=== PATIENT | female | born 1985 | race Caucasian/White ===

== ENCOUNTER 2020-11-01 05:45 | Inpatient (IN) | payer OTHER ==
[~2020-11-01] VITALS: Ht 167.6 cm; Wt 87.0 kg
[~2020-11-01 05:45] MED LIST: IBUP-1222 PO
[2020-11-01] MEDS ORDERED: SODIUM CITRATE/CITRIC ACID 30 ML UDC PO PRN (06:00)
[2020-11-01] MEDS ORDERED: ALUMINUM/MAG/SIMETHICONE 30 ML UDC PO PRN (06:00)
[2020-11-01] MEDS ORDERED: CALCIUM CARBONATE 500 MG TAB.CHEW PO PRN ×2 (06:00→16:30)
[2020-11-01] MEDS ORDERED: METOCLOPRAMIDE 5 MG/ML, 2ML IVPush PRN (06:00)
[2020-11-01] MEDS ORDERED: FENTANYL PF 100 MCG/2ML IV PRN (06:00)
[2020-11-01] MEDS ORDERED: SODIUM CHLORIDE FLUSH 10ML SYR IVF PRN (06:00)
[2020-11-01] MEDS ORDERED: ONDANSETRON 2MG/ML, 2ML IVPush PRN ×2 (06:00→18:00)
[2020-11-01] MEDS: D5%-LACTATED RINGERS 1,000 ML IV SCH ×3 (06:00→22:00)
[2020-11-01] MEDS ORDERED: TERBUTALINE 1 MG/ML, 1ML IVPush PRN (06:00)
[2020-11-01] MEDS ORDERED: OXYTOCIN 30U/ 0.9% NaCL 500ML 500 ML IV ONE (06:00)
[2020-11-01] MEDS ORDERED: TERBUTALINE 1 MG/ML, 1ML SQ PRN (06:00)
[2020-11-01] MEDS ORDERED: FENTANYL PF 100 MCG/2ML ONE ×3 (06:07→15:27)
[2020-11-01] MEDS: LACTATED RINGERS 1,000 ML IV SCH ×9 (06:10→22:00)
[2020-11-01] MEDS: FENTANYL PF 100 MCG/2ML IVPush PRN ×2 (06:11→08:54)
[2020-11-01 06:21] VITALS: BP 100/55
[2020-11-01] MEDS ORDERED: LIDOCAINE 1%, 20ML ONE (06:25)
[2020-11-01] MEDS ORDERED: MISOPROSTOL 200 MCG TABLET ONE (06:25)
[2020-11-01 06:59] LABS: BASOPHILS % (AUTO) 1 % (0-1); EOSINOPHILS % (AUTO) 3 % (1-7); LYMPHOCYTES % (AUTO) 13 % (22-44); MEAN CORPUSCULAR HEMOGLOBIN 28.5 pg (27.0-34.8); MEAN CORPUSCULAR HGB CONC 32.9 g/dL (32.4-35.8); MEAN PLATELET VOLUME 9.4 fL (7.4-10.4); MONOCYTES % (AUTO) 9 % (2-9); NEUTROPHILS % (AUTO) 75 % (42-75); PLATELET COUNT 210 x10^3/uL (130-400); RED BLOOD COUNT 3.87 x10^6/uL (3.82-5.3); RED CELL DISTRIBUTION WIDTH 14.1 % (9.6-15.2)
[2020-11-01] MEDS ORDERED: FENTANYL/BUPIV./NS/PF 250 ML EPIDCONT ONE (07:11)
[2020-11-01] MEDS ORDERED: EPHEDRINE 50 MG/ML, 1ML IVPush PRN ×3 (07:30→18:00)
[2020-11-01] MEDS ORDERED: LACTATED RINGERS 1,000 ML IVBOLUS PRN ×2 (07:30→10:00)
[2020-11-01] MEDS ORDERED: NALOXONE 0.4 MG/ML, 1ML IVPush PRN ×2 (07:30→10:00)
[2020-11-01] MEDS ORDERED: FENTANYL/BUPIV./NS/PF 250 ML EPIDCONT SCH ×2 (07:30→10:00)
[2020-11-01] MEDS ORDERED: BUPIVACAINE 0.25% ONE (08:48)
[2020-11-01] MEDS ORDERED: DIPHENHYDRAMINE 25 MG CAPSULE ONE (13:49)
[2020-11-01] MEDS ORDERED: DIPHENHYDRAMINE 25 MG CAPSULE PO ONE ×2 (14:00→22:30)
[2020-11-01] MEDS ORDERED: SODIUM CITRATE/CITRIC ACID 15 ML UDC ONE (15:24)
[2020-11-01] MEDS ORDERED: PROPOFOL 10 MG/ML, 20ML ONE (15:27)
[2020-11-01] MEDS ORDERED: OXYTOCIN 10 UNITS/ML, 1ML ONE (15:27)
[2020-11-01] MEDS ORDERED: EPHEDRINE 50 MG/ML, 1ML ONE (15:27)
[2020-11-01] MEDS ORDERED: CEFAZOLIN 1,000 MG ONE (15:27)
[2020-11-01] MEDS ORDERED: DEXAMETHASONE 4 MG/ML, 1ML ONE (15:27)
[2020-11-01] MEDS ORDERED: PHENYLEPHRINE 10 MG/ML ONE (15:27)
[2020-11-01] MEDS ORDERED: KETOROLAC 30 MG/1 ML ONE (15:27)
[2020-11-01] MEDS ORDERED: SUCCINYLCHOLINE 20 MG/ML, 10ML ONE (15:27)
[2020-11-01] MEDS ORDERED: ONDANSETRON 2MG/ML, 2ML ONE (15:27)
[2020-11-01] MEDS ORDERED: morphine SULFATE/PF 0.5 MG/ML, 10ML ONE (16:09)
[2020-11-01] MEDS: KETOROLAC 30 MG/1 ML IV SCH ×2 (16:30→23:39)
[2020-11-01] MEDS ORDERED: METOCLOPRAMIDE 5 MG/ML, 2ML IV PRN (16:30)
[2020-11-01] MEDS ORDERED: MISOPROSTOL 200 MCG TABLET SL PRN (16:30)
[2020-11-01] MEDS ORDERED: ONDANSETRON 2MG/ML, 2ML IV PRN (16:30)
[2020-11-01] MEDS ORDERED: DIPH,PERTUSS(ACELL),TET VAC/PF NC IM-VACC PRN (16:30)
[2020-11-01] MEDS: OXYTOCIN 30U/ 0.9% NaCL 500ML 500 ML IV SCH (16:30)
[2020-11-01] MEDS ORDERED: MORPHINE SULFATE 4 MG/ML, 1ML IVPush PRN (16:30)
[2020-11-01] MEDS ORDERED: METHYLERGONOVINE 0.2 MG/ML IM PRN (16:30)
[2020-11-01] MEDS ORDERED: HYDROmorphone 1 MG/ML, 1ML INJ IVPush PRN (18:00)
[2020-11-01] MEDS ORDERED: FENTANYL PF 100 MCG/2ML IVPush PRN (18:00)
[2020-11-01] MEDS ORDERED: NALOXONE 0.4 MG/ML, 1ML IV PRN ×3 (18:00)
[2020-11-01] MEDS ORDERED: OXYcodone/APAP 5/325MG TABLET PO PRN (18:00)
[2020-11-01] MEDS ORDERED: DIPHENHYDRAMINE 50 MG/ML, 1ML IV PRN (18:00)
[2020-11-01] MEDS ORDERED: KETOROLAC 30 MG/1 ML IVPush SCH (18:00)
[2020-11-01 18:20] VITALS: BP 97/57
[2020-11-01 19:32] VITALS: BP 95/56
[2020-11-01] MEDS: DOCUSATE 100 MG CAPSULE PO SCH (23:39)
[2020-11-02] VITALS (7 sets, daily range): BP systolic 84–100; BP diastolic 44–64
[2020-11-02 00:10] LABS: BASOPHILS % (AUTO) 0 % (0-1); EOSINOPHILS % (AUTO) 0 % (1-7); LYMPHOCYTES % (AUTO) 3 % (22-44); MEAN CORPUSCULAR HEMOGLOBIN 28.6 pg (27.0-34.8); MEAN CORPUSCULAR HGB CONC 32.7 g/dL (32.4-35.8); MEAN PLATELET VOLUME 9.4 fL (7.4-10.4); MONOCYTES % (AUTO) 8 % (2-9); NEUTROPHILS % (AUTO) 90 % (42-75); PLATELET COUNT 190 x10^3/uL (130-400); RED BLOOD COUNT 3.51 x10^6/uL (3.82-5.3); RED CELL DISTRIBUTION WIDTH 14.1 % (9.6-15.2)
[2020-11-02] MEDS: LACTATED RINGERS 1,000 ML IV SCH ×6 (00:30→22:30)
[2020-11-02] MEDS: OXYTOCIN 30U/ 0.9% NaCL 500ML 500 ML IV SCH ×3 (02:30→22:30)
[2020-11-02] MEDS: ACETAMINOPHEN 325 MG TABLET PO PRN ×3 (03:42→20:34)
[2020-11-02] MEDS: KETOROLAC 30 MG/1 ML IV SCH ×2 (05:27→11:56)
[2020-11-02] MEDS: DOCUSATE 100 MG CAPSULE PO SCH ×2 (09:00→19:05)
[2020-11-02] MEDS: PRENATAL VIT/IRON/FA 1 EACH TABLET PO SCH (09:00)
[2020-11-02] MEDS: OXYcodone IR 5MG TABLET PO PRN ×4 (09:18→19:06)
[2020-11-02] MEDS: SIMETHICONE 80 MG CHEW TAB PO PRN (20:34)
[2020-11-03] MEDS: ACETAMINOPHEN 325 MG TABLET PO PRN ×4 (00:10→23:15)
[2020-11-03] MEDS: OXYcodone IR 5MG TABLET PO PRN ×6 (00:11→20:21)
[2020-11-03] MEDS: LACTATED RINGERS 1,000 ML IV SCH (00:30)
[2020-11-03] MEDS: SIMETHICONE 80 MG CHEW TAB PO PRN ×2 (04:11→20:20)
[2020-11-03] MEDS ORDERED: IBUPROFEN 600 MG TABLET ONE ×3 (05:41→23:11)
[2020-11-03] MEDS: IBUPROFEN 800 MG TABLET PO PRN ×3 (05:42→23:16)
[2020-11-03 07:30] VITALS: BP 98/47
[2020-11-03] MEDS: DOCUSATE 100 MG CAPSULE PO SCH ×2 (09:18→20:20)
[2020-11-03] MEDS: PRENATAL VIT/IRON/FA 1 EACH TABLET PO SCH (09:19)
[2020-11-03 19:59] VITALS: BP 105/67
[2020-11-04] MEDS: OXYcodone IR 5MG TABLET PO PRN ×4 (00:22→15:37)
[2020-11-04] MEDS: IBUPROFEN 800 MG TABLET PO PRN ×2 (08:02→14:08)
[2020-11-04] MEDS: PRENATAL VIT/IRON/FA 1 EACH TABLET PO SCH (08:02)
[2020-11-04] MEDS: ACETAMINOPHEN 325 MG TABLET PO PRN ×2 (08:02→14:08)
[2020-11-04] MEDS: SIMETHICONE 80 MG CHEW TAB PO PRN (08:02)
[2020-11-04] MEDS: DOCUSATE 100 MG CAPSULE PO SCH (08:02)
[2020-11-04 08:20] VITALS: BP 107/69
[2020-11-04] MEDS ORDERED: DOCU-131 PO (09:40)
[2020-11-04] MEDS ORDERED: OXYC1TAB12 PO (09:41)
== END 2020-11-04 17:09 | disposition home or self-care (01) | DRG 788 ==
LOC: LDOP 05:45 → LDIP 06:03 → 2NW 19:08
PROVIDERS: ADMIT Obstetrics & Gynecology; ATTEND Obstetrics & Gynecology
PROC: 10D00Z1 Extraction of Products of Conception, Low, Open Approach (ICD-10-PCS; principal; 2020-11-01)
DX: O76 Abnormality in fetal heart rate and rhythm complicating labor and delivery (principal); F41.9 Anxiety disorder, unspecified; O62.1 Secondary uterine inertia; O64.0XX0 Obstructed labor due to incomplete rotation of fetal head, not applicable or unspecified; O99.344 Other mental disorders complicating childbirth; O99.62 Diseases of the digestive system complicating childbirth; Z37.0 Single live birth; Z3A.40 40 weeks gestation of pregnancy; Z90.89 Acquired absence of other organs; Z88.8 Allergy status to other drugs, medicaments and biological substances; Z20.822 Contact with and (suspected) exposure to COVID-19
CPT/HCPCS: 36415; 85025; 86592; 86850; 86900; 87635; G0378; J0690; J1100; J1885; J2274; J2405; J2704; J3010; J0330; J2370; J2590; J7120; Q0163